=== PATIENT | male | born 1990 | race African-American/Black ===

== ENCOUNTER 2023-03-27 20:37 | Emergency (ER) | payer BC, SELFPAY ==
--- NOTE | ~2023-03-27 | XR_ITS ---
EXAMINATION: XR CHEST CLINICAL INFORMATION: Shortness of breath. COMPARISON: None available. TECHNIQUE: 2 frontal views of the chest were obtained. FINDINGS: No significant abnormality is noted involving the heart, lungs, mediastinum, bony thorax or soft tissues. XR/XR chest 1V IMPRESSION: Unremarkable examination.
[2023-03-27 20:50] VITALS: BP 138/80; PULSE 104; RESP 22; TEMP 36.8; O2SAT 98; BMI 48.8
--- NOTE | 2023-03-27 20:50 | ED.GENADULT ---
HPI - General Adult General Chief complaint: Asthma Stated complaint: asthma, difficulty breathing Time Seen by Provider: 03/27/23 21:02 Source: patient Mode of arrival: ambulatory Limitations: no limitations History of Present Illness HPI narrative: Patient is a 33-year-old male presented to emergency department for evaluation of shortness of breath and wheezing. He reports 2 days with a dry nonproductive cough, progressive worsening of his breathing unrelieved with inhaler at home, wheezing, chest discomfort. Endorses sick contacts in the home. Related Data Previous Rx's Medication Instructions Recorded prednisone 20 mg tablet 40 mg (2 x 20 mg) PO DAILY 5 days 03/28/23 #10 tabs Allergies Allergy/AdvReac Type Severity Reaction Status Date / Time ibuprofen Allergy Unknown Verified 03/27/23 23:38 iodine Allergy Angioedema Verified 03/27/23 23:38 shellfish derived Allergy Anaphylaxis Verified 03/27/23 23:37 Review of Systems Review of Systems: Yes all other systems are reviewed and are negative PMFSH Past Medical History Attestation statement: The following information was validated with the patient. Source: old records reviewed Social History Social History Advance Directives: No Advance Directives Information Provided: No Physical Exam ED Vital Signs: Vital Signs - 24 hr 03/27/23 20:50 03/27/23 21:14 03/27/23 21:45 Temperature 98.3 F Pulse Rate 104 H 98 116 H Pulse Rate [Monitor] Respiratory Rate 22 H 16 14 Blood Pressure 138/80 Pulse Oximetry 98 Oxygen Delivery Method Room Air 03/27/23 22:03 03/27/23 22:12 Temperature Pulse Rate 130 H Pulse Rate [Monitor] 107 H Respiratory Rate 25 H 26 H Blood Pressure 145/82 H Pulse Oximetry 96 Oxygen Delivery Method Room Air BMI result Body Mass Index 48.8 Appearance: Alert.?Oriented to person, place and time. N Eyes: Pupils equal, round and reactive to light.? ENT: Pharynx normal.?? Neck: Normal inspection.? Neck supple. No cervical lymphadenopathy?? CVS: Heart sounds normal. Normal heart rate and rhythm.? Pulses normal.?? Respiratory: Increased work of breathing, use of accessory muscles..? Lung sounds with bilateral inspiratory and expiratory wheezing?? Abdomen: Soft and non-tender. Normoactive bowel sounds. Skin: Skin warm and dry.? Normal skin color.? ? Extremities: No lower extremity edema.? No calf ttp? Neuro: Moves all extremities spontaneously. Sensation intact bilaterally. CN II-XII intact. No focal neuro deficits. Ambulates with normal steady gait. Course Course Course Narrative: This is an RME: Additional HPI, ROS, PE not included below will be deferred to primary provider. This is a [id number]-male, hx of asthma, presenting to the emergency department with a complaint of shortness of breath and wheezing. Reports that he had dry cough starting monday. Very tight, inspiratory and expiratory wheezing heard throughout all lung casarez. Vital signs stable. Brought back to main emergency department for further evaluation and treatment. Plan: ED bronch protocol, RSV/COVID/Flu swabs, Prednisone 60mg PO ordered. Reevaluation(s) Reevaluation #1: Tachycardia with improvement heart rate 120-130, O2 94% R.A., tachypnea. RSV testing is positive. CBC shows no leukocytosis or anemia. CMP is unremarkable. High sensitive troponin nondetectable, EKG revealing a normal sinus rhythm with ventricular rate of 96, normal NM interval, QTC 419, no ST elevation, ST depression, no T-wave inversion, unlikely ACS. Chest x-ray without acute cardiopulmonary findings, no evidence of pneumonia. At this time do not suspect sepsis suspect tachycardia and tachypnea secondary to viral illness, no antibiotics required at this time. D-dimer 257, will obtain CT angio of the chest to exclude pulmonary embolism versus persistent tachycardia due to nebulized albuterol and viral illness with asthma exacerbation. Time: 23:01 Reevaluation #2: Advised patient has iodine allergy, unable to obtain CT angio of the chest for exclusion of pulmonary embolism. Discussed this case with ED attending Dr. Jeffries who recommends Lovenox 1 mg/kg and admission for further work-up to exclude PE.. Room air ambulatory O2 trial with O2 saturation greater than 95% the entire time the increased work of breathing compared to at rest. Pulse at this time has remained less than 110. I discussed with patient admission to medicine service for further evaluation to exclude pulmonary embolism, this would include having VQ scan given elevated dimer, he however declined stating that he cannot stay the night, and like to be discharged home. We discussed risks of untreated pulmonary embolism including and he has verbalized understanding of this. Reports that he will return with any new or worsening symptoms or concerns. Time: 23:45 Medications Administered Discontinued Medications Generic Name Dose Route Start Last Admin Trade Name Zana PRN Reason Stop Dose Admin Albuterol Sulfate 2.5 mg/ 5 mg 03/27/23 21:07 03/27/23 21:14 Albuterol Sulfate 2.5 mg INHALE 03/27/23 21:08 5 mg ONCE ONE Administration Albuterol Sulfate 2.5 mg 03/27/23 21:31 03/27/23 21:44 Albuterol Sulfate (0.083%) 2.5 Mg/3 Ml Vial.Neb INHALE 03/27/23 21:32 2.5 mg ONCE ONE Administration Sodium Chloride 1,000 mls @ 999 mls/hr 03/27/23 23:15 03/27/23 23:34 Ns IV 03/28/23 00:15 999 mls/hr .Q1H1M MERISSA Administration Prednisone 60 mg 03/27/23 20:53 03/27/23 21:09 Prednisone 20 Mg Tablet PO 03/27/23 20:54 60 mg ONCE ONE Administration Medical Decision Making Medical Decision Making [facility] Narrative: 21:00 First contact with patient Patient is a 33-year-old male with past medical history of asthma presenting to emergency department for evaluation of shortness of breath and wheezing notable increased work of breathing upon initial assessment with tachycardia and tachypnea, suspect at this time likely asthma exacerbation versus viral illness, ED bronchodilator protocol was ordered in addition to oral prednisone, plan to obtain serum labs viral testing and chest x-ray to exclude consolidation or infiltrate. Left likely ACS / PE given no risk factors. However, PERC is postive, will obtain d-dimer to exclude PE. Differential Diagnosis Differential Diagnoses: The differential diagnosis associated with the presentation includes (As noted above) Lab Data 03/27/23 21:23 03/27/23 21:23 Labs: Lab Results 03/27/23 Range/Units 21:23 WBC 9.8 (4.8-10.8) X10*3/uL RBC 5.30 (4.60-5.80) X10*6/uL Hgb 14.9 (14.0-18.0) g/dl Hct 45.7 (42.0-52.0) % MCV 86.2 (80.0-98.0) fL MCH 28.1 (27.0-33.0) pg MCHC 32.6 (31.0-36.0) g/dl RDW 13.7 (11.0-16.0) % Plt Count 269 (160-400) X10*3/uL MPV 10.0 (9.4-12.4) fL Immature Gran % (Auto) 0.3 (0.0-0.4) % Neut % (Auto) 64.8 (45-73) % Lymph % (Auto) 19.0 L (20-40) % Will % (Auto) 9.4 (2-11) % Eos % (Auto) 6.2 H (0-4) % Baso % (Auto) 0.3 (0-2) % Lymph # (Auto) 1.9 (1.2-4.9) X10*3/uL Will # (Auto) 0.9 (0.1-1.2) X10*3/uL Eos # (Auto) 0.6 H (0.0-0.4) X10*3/uL Baso # (Auto) 0.0 (0.0-0.2) X10*3/uL Abs Immat Gran (auto) 0.03 (0.00-0.03) X10*3/uL Absolute Neuts (auto) 6.3 (2.0-8.3) x10*3/uL Absolute Nucleated RBC 0.000 (0.0-0.012) X10*3/uL Nucleated RBC % (auto) 0.0 (0.0-0.2) /100WBC PT 12.8 (11.1-13.3) SEC INR 1.1 (0.9-1.1) D-Dimer High Sensitivty 257 NG/ML Sodium 137 (135-145) mmol/L Potassium 4.3 (3.3-5.1) mmol/L Chloride 105 (96-108) mmol/L Carbon Dioxide 23 (22-29) mmol/L Anion Gap 13 (12-20) BUN 13 (9-16) mg/dL Creatinine 0.85 (0.5-1.4) mg/dL Estim Creat Clear Calc 179.0 Estimated GFR > 60 Random Glucose 110 (60-115) mg/dL Calcium 9.1 (8.4-10.2) mg/dL Magnesium 2.1 (1.6-2.6) mg/dL Total Bilirubin 0.6 (0.0-1.0) mg/dL AST 32 (5-37) U/L ALT 43 H (0-40) U/L Alkaline Phosphatase 79 (39-117) U/L Troponin I High Sens < 2.7 (<3.5-35.0) ng/L Total Protein 7.2 (6.5-8.0) g/dL Albumin 4.1 (3.5-5.0) g/dL Influenza Type A (PCR) NEGATIVE (Negative) Influenza Type B (PCR) NEGATIVE (Negative) RSV RNA Qual (PCR) POSITIVE A (Negative) SARS-CoV-2 RNA (RT-PCR) NEGATIVE (Negative) Discharge Plan Discharge Clinical Impression: Asthma with acute exacerbation, Respiratory syncytial virus (RSV), Left against medical advice Patient Disposition: Left Against Medical Advice Instructions: Asthma (ED), Against Medical Advice (ED) Additional Instructions: As discussed, it was recommended that you remain in the emergency department for further evaluation/hospital admission to rule out a pulmonary embolism/blood clot in your lungs. This is because your D-Dimer lab was elevated, your heart rate has been elevated, in your breathing rate was also elevated. You however declined hospital admission tonight and are leaving against medical advice. Today you have tested positive for RSV, a common respiratory viruses. This is very contagious. Please be sure to get plenty of rest, drink fluids, take your albuterol inhaler as prescribed in addition to prednisone. Please contact your primary care provider to arrange for further follow-up. You may return back to the emergency department any new or worsening symptoms or concerns. Prescriptions: New prednisone 20 mg tablet 40 mg PO DAILY 5 Days Qty: 10 0RF Referrals: Physician,Unknown J [Primary Care Provider] - Stand Alone Forms: Against Medical Advice
--- NOTE | 2023-03-27 21:03 | ECG_ITS ---
Test Reason : SOB Blood Pressure : / mmHG Vent. Rate : 096 BPM Atrial Rate : 096 BPM P-R Int : 144 ms QRS Dur : 084 ms QT Int : 332 ms P-R-T Axes : 038 065 042 degrees QTc Int : 419 ms Normal sinus rhythm Normal ECG No previous ECGs available Referred By: Diana Hernandez Electronically Signed By:LILLI BILL
[2023-03-27] MEDS: predniSONE 20 MG TABLET 60 MG PO (21:09)
[2023-03-27 21:14] VITALS: PULSE 98; RESP 16; O2SAT 99
[2023-03-27] MEDS: Albuterol Sulfate 2.5 MG, Albuterol Sulfate (0.083%) 2.5 MG 5 MG INHALE (21:14)
[2023-03-27 21:28] LABS: MANUAL DIFF FLAG NO
[2023-03-27 21:29] LABS: Basophils Percent Auto 0.3 % (0-2); Eosinophils Absolute Auto 0.6 X10*3/uL (0.0-0.4); Eosinophils Percent Auto 6.2 % (0-4); Hematocrit 45.7 % (42.0-52.0); Hemoglobin 14.9 g/dl (14.0-18.0); Imm Gran Abs Auto 0.03 X10*3/uL (0.00-0.03); Imm Gran Pct Auto 0.3 % (0.0-0.4); Lymphocytes Absolute Auto 1.9 X10*3/uL (1.2-4.9); Mean Corpuscular HGB Conc 32.6 g/dl (31.0-36.0); Mean Corpuscular Hemoglobin 28.1 pg (27.0-33.0); Mean Corpuscular Volume 86.2 fL (80.0-98.0); Monocytes Absolute Auto 0.9 X10*3/uL (0.1-1.2); Monocytes Percent Auto 9.4 % (2-11); Neutrophils Absolute Auto 6.3 x10*3/uL (2.0-8.3); Neutrophils Percent Auto 64.8 % (45-73); Platelet Count 269 X10*3/uL (160-400); Red Cell Distribution Width 13.7 % (11.0-16.0); White Blood Count 9.8 X10*3/uL (4.8-10.8)
--- NOTE | 2023-03-27 21:35 | MHC.EDTECH ---
This Tech assumed care of this pt upon arrival. PT changed into hospital gown and placed on traffic monitor specialist. EKG handed to provider lab work sent for processing
[2023-03-27 21:38] LABS: INTERNATIONAL NORM RATIO 1.1 (0.9-1.1); Prothrombin Time 12.8 SEC (11.1-13.3)
[2023-03-27] MEDS: Albuterol Sulfate (0.083%) 2.5 MG/3 ML VIAL.NEB INHALE (21:44)
[2023-03-27 21:45] VITALS: PULSE 116; RESP 14; O2SAT 99
[2023-03-27 21:48] LABS: Alanine Aminotransferase 43 U/L (0-40); Albumin Level 4.1 g/dL (3.5-5.0); Alkaline Phosphatase 79 U/L (39-117); Anion Gap 13 (12-20); Aspartate Amino Transferase 32 U/L (5-37); Bilirubin Total 0.6 mg/dL (0.0-1.0); Blood Urea Nitrogen 13 mg/dL (9-16); Calcium 9.1 mg/dL (8.4-10.2); Carbon Dioxide 23 mmol/L (22-29); Chloride 105 mmol/L (96-108); Estimated Glomerular Filt Rate > 60; Glucose Random 110 mg/dL (60-115); Magnesium 2.1 mg/dL (1.6-2.6); Potassium 4.3 mmol/L (3.3-5.1); Sodium 137 mmol/L (135-145); Total Protein 7.2 g/dL (6.5-8.0)
[2023-03-27 22:03] VITALS: PULSE 107; RESP 25
[2023-03-27 22:08] LABS: Influenza A PCR NEGATIVE (Negative); Influenza B PCR NEGATIVE (Negative); Resp Syncy Virus RNA Qual PCR POSITIVE (Negative); SARS COV2 PCR INHOUSE NEGATIVE (Negative)
[2023-03-27 22:09] LABS: Troponin-I High Sensitivity < 2.7 ng/L (<3.5-35.0)
[2023-03-27 22:12] VITALS: BP 145/82; PULSE 130; RESP 26; O2SAT 96
[2023-03-27 22:15] LABS: D Dimer High Sensitivity 257 NG/ML
[2023-03-27] MEDS: 0.9 % Sodium Chloride 1,000 ML 999 ML IV (23:34)
--- NOTE | 2023-03-28 00:12 | PC.NURSE ---
message house carpenter with request to retrieve medication due to it not being in pyxsis
--- NOTE | 2023-03-28 00:23 | MHC.EDTECH ---
PT ambulated per PA request. Pt O2 Sat was 97%- 95% room air
== END 2023-03-28 00:58 | disposition left against medical advice (07) ==
PROVIDERS: Nurse Practitioner Family; Physician Assistant Medical; Emergency Provider Emergency Medicine
DX: J45.901 Unspecified asthma with (acute) exacerbation (principal); J22 Unspecified acute lower respiratory infection; R06.02 Shortness of breath; Z79.899 Other long term (current) drug therapy; Z20.822 Contact with and (suspected) exposure to COVID-19; Z20.828 Contact with and (suspected) exposure to other viral communicable diseases
CPT/HCPCS: 0241U; 36415; 71045; 80053; 83735; 84484; 85025; 85379; 85610; 93005; 94640; 96360; 99284; 99285

== ENCOUNTER 2023-03-28 08:36 | Emergency (ER) | payer BC, SELFPAY ==
--- NOTE | ~2023-03-28 | NM_ITS ---
EXAMINATION: PULMONARY PERFUSION STUDY CLINICAL INFORMATION: Tachycardia and dyspnea, elevated d-dimer. Patient is RSV positive. COMPARISON: No previous lung scan is available for comparison. Radiograph of the chest dated 03/27/2023 is available for comparison. TECHNIQUE: Following the intravenous administration of 4.0 mCi Tc-99m MAA an 8-view perfusion study was performed using a dual detector gamma scintillation camera. No ventilation images were obtained. FINDINGS: Perfusion images: No segmental perfusion defects are present. There is a small subsegmental wedge-shaped perfusion defect in the posterior segment of the left upper lobe and a very small barely perceptible subsegmental perfusion defect is present in the anterior segment of the right upper lobe, well visualized only on the RPO view. No additional perfusion defects are visualized. The activity is otherwise homogeneous throughout the other lung casarez. NM/NM pul perfusion IMPRESSION: Very low probability of pulmonary embolism.
[2023-03-28 08:44] VITALS: BP 139/95; PULSE 103; RESP 18; TEMP 36.6; O2SAT 97; BMI 49.5
[2023-03-28 08:57] VITALS: BP 139/85; PULSE 114; RESP 18; O2SAT 96
--- NOTE | 2023-03-28 09:09 | ED_ITS ---
HPI - SOB/Dyspnea General Chief Complaint: Dyspnea Stated Complaint: Diff breathing left AMA last night Time Seen by Provider: 03/28/23 08:52 Source: patient and old records reviewed Mode of arrival: ambulatory Limitations: no limitations History of Present Illness HPI Narrative: 33 yo male with PMH of asthma just seen here yesterday for chest tightness, asthma and URI symptoms with sick contacts at home he was diagnosed with RSV+ - CXR was negative, RSV+PCR, he was tachycardic so ddimer sent off only 257 without risk factors for VTE has allergy to iodine so CTA was not done he was given lovenox injection and left AMA due to work issues. He comes back for further VTE testing he has no hx of clots. He has no chest pain now and after treatment in the ED he looks well and is feeling better, HR remains slightly elevated. EKG yesterday 96 MD elicited complaint: shortness of breath and cough Pertinent past history: asthma Onset (ago): day(s) (3) Context: recent illness Timing: improved Severity: mild Exacerbating factors: coughing Relieving factors: rest, bronchodilators and medication Known history of: asthma Associated symptoms: cough and wheezing Treatment prior to arrival: other (treatments in ED, prednisone, was given a dose of lovenox prior to DC) Related Data Previous Rx's Medication Instructions Recorded prednisone 20 mg tablet 40 mg (2 x 20 mg) PO DAILY 5 days 03/28/23 #10 tabs Allergies Allergy/AdvReac Type Severity Reaction Status Date / Time ibuprofen Allergy Unknown Verified 03/28/23 08:44 iodine Allergy Angioedema Verified 03/28/23 08:44 shellfish derived Allergy Anaphylaxis Verified 03/28/23 08:44 Review of Systems Review of Systems: Constitutional : No Fever, No Chills ENT/Mouth : No Hoarseness, No sore throat, No Rhinorrhea Eyes: No Redness, No Discharge, No Vision Changes Cardiovascular : No Chest Pain, positive SOB, positive Dyspnea on Exertion, No Edema Respiratory : positive Cough, No Sputum, positive Wheezing, Gastrointestinal : No Nausea, No Vomiting, No Diarrhea, No abdominal Pain Genitourinary : No Dysuria, No Hematuria Musculoskeletal : No joint pain, No Myalgias Skin : No rash Neuro : No Weakness, No Numbness, No Headache Psych : No anxiety, depression Heme/Lymph: No Bruising, No Bleeding Endocrine : No Polyuria, No Polydipsia All other systems reviewed and are negative [facility] Past Medical History Attestation statement: The following information was validated with the patient. Medical History Asthma with acute exacerbation Social History Social History Patient Tobacco Use Status: Never used Tobacco Smoked in Last 30 Days: No Use of substances other than those prescribed or required for medical reasons: Yes Substance Use Type: Marijuana Advance Directives: No Advance Directives Information Provided: Yes Physical Exam Vital Signs: Vital Signs: Last Vital Signs Temp 98.8 F 03/28/23 11:41 Pulse 105 H 03/28/23 11:41 Resp 18 03/28/23 11:41 BP 118/68 03/28/23 11:41 Pulse Ox 96 03/28/23 11:41 O2 Del Method Room Air 03/28/23 11:41 BMI result Body Mass Index 49.5 Appearance: Alert. Oriented X3. No acute distress. Eyes: Pupils equal, round and reactive to light. ENT: Pharynx normal. Neck: Normal inspection. Neck supple. CVS: Normal heart rate and rhythm. Pulses normal. Respiratory: No respiratory distress. Breath sounds diminished no wheezes not in distress. Abdomen: Soft and non-tender. Skin: Skin warm and dry. Normal skin color. Normal skin turgor. Extremities: No lower extremity edema. Neuro: Oriented X 3. No motor deficit. No sensory deficit. Medications Administered Discontinued Medications Generic Name Dose Route Start Last Admin Trade Name Freq PRN Reason Stop Dose Admin Benzonatate 100 mg 03/28/23 09:28 03/28/23 09:33 Benzonatate 100 Mg Capsule PO 03/28/23 09:29 100 mg ONCE ONE Administration Medical Decision Making Medical Decision Making MDM Narrative: 33 yo male with persistent tachycardia during visit yesterday had mildly elevated ddimer but has RSV and asthma from resp standpoint he is doing great and looks well no hypoxia. Mild elevation in HR but no signs of DVT, no hypoxia, no chest pain now at this time will obtain VQ scan and if negative will DC home and continue treatment with prednisone. Differential Diagnosis Differential Diagnoses: The differential diagnosis associated with the presentation includes viral RSV infection, asthma, anxiety just had normal labs and EKG yesterday Admission/Observation Consideration of admission/observation: Escalation of care including admission/observation considered no resp distress can be managed as outpatient Lab Data MDM Lab Attestation statement: I reviewed the patient's lab results. Independent Interpretation I performed an independent interpretation of an: EKG (EKG was 96 NSR yesterday ) and Plain X-Ray (normal yesterday) Interpretation: VQ scan today: no PE Radiology Impression Discussion of test interpretation with radiology: I have reviewed the radiologist's reading. Radiologist Impression: VQ low prob with no hypoxia and no chest pain - ddimer only 257 External Record Review External record reviewed: Inpatient record Discharge Plan Discharge Clinical Impression: Respiratory syncytial virus (RSV) Patient Disposition: Home, Self-Care Instructions: Respiratory Syncytial Virus (ED) Additional Instructions: no signs of blood clot , continue prednisone and inhalers. you should not be around people this is contagious would stay out of work for the next 3 days. return for increased work of breathing, no improvement with treatments, pain or any other concerns. Prescriptions: No Action prednisone 20 mg tablet 40 mg PO DAILY 5 Days Qty: 10 0RF Stand Alone Forms: Work/School Release
[2023-03-28 09:14] VITALS: PULSE 105; RESP 20; O2SAT 95
[2023-03-28] MEDS: Benzonatate 100 MG CAPSULE PO (09:33)
--- NOTE | 2023-03-28 10:35 | PC.NURSE ---
Pt off unit to nuclear medicine for VQ scan
[2023-03-28 11:41] VITALS: BP 118/68; PULSE 105; RESP 18; TEMP 37.1; O2SAT 96
--- NOTE | 2023-03-28 12:01 | PC.NURSE ---
Assumed care for pt, was at [facility], returned approx 1145, pt VSS, reports no pain.
== END 2023-03-28 12:42 | disposition home or self-care (01) ==
PROVIDERS: Emergency Provider Emergency Medicine
DX: R05.9 Cough, unspecified (principal); B97.4 Respiratory syncytial virus as the cause of diseases classified elsewhere; R00.0 Tachycardia, unspecified; R06.02 Shortness of breath; F12.90 Cannabis use, unspecified, uncomplicated
CPT/HCPCS: 78580; 99284; A9540

== ENCOUNTER 2023-07-31 08:14 | Emergency (ER) | payer BC, SELFPAY ==
--- NOTE | ~2023-07-31 | XR_ITS ---
EXAMINATION: XR RIBS, RIGHT CLINICAL INFORMATION: Right rib pain status post fall COMPARISON: None available. TECHNIQUE: 5 views of the right ribs were obtained. FINDINGS: Bilateral low lung volumes. Slight bibasilar atelectasis. No pneumothorax. Trachea is midline. Cardiac mediastinal silhouette is not enlarged. No large pleural effusion. Soft tissues are unremarkable. Osseous structures are intact. No acute visualized right-sided rib fractures. XR/XR ribs RT min 3V w CXR1V IMPRESSION: 1. Bilateral low lung volumes. 2. Slight bibasilar atelectasis. 3. No acute visualized right-sided rib fractures.
[2023-07-31 08:17] VITALS: BP 126/81; PULSE 97; RESP 20; TEMP 35.7; O2SAT 99; BMI 49.3
--- NOTE | 2023-07-31 08:24 | ED_ITS ---
HPI - General Adult General Chief complaint: General Medical Stated complaint: pulled a muscle? Time Seen by Provider: 07/31/23 08:24 Source: patient and family Mode of arrival: ambulatory Limitations: no limitations History of Present Illness HPI narrative: 33-year-old male came in for evaluation of right-sided chest pain after having a coughing fit last night. Patient was history of known asthma cough just moved to the area has no PCP yet, been having chronic cough due to asthma last night around 18:00 patient had a coughing fit felt a pop on the right side of the chest, pain has been constant since yesterday more with movement and taking a deep breath. pain is localized to the right chest wall with no radiation has been constant since yesterday worsening with movement and taking a deep breath. Patient has strong family history of IA, unknown family history of PE patient declined lower extremity swelling or tenderness, or recent travel. Related Data Previous Rx's Medication Instructions Recorded prednisone 20 mg tablet 40 mg (2 x 20 mg) PO DAILY 5 days 03/28/23 #10 tabs albuterol sulfate 2.5 mg/3 mL 2.5 mg (3 mL) inhalation QID PRN 07/31/23 (0.083 %) solution for nebulization shortness of breath or wheezing #75 mL albuterol sulfate 90 mcg/actuation 2 puff inhalation Q6H PRN 07/31/23 aerosol inhaler shortness of breath or wheezing #8.5 grams prednisone 20 mg tablet 20 mg PO BID #10 tabs 07/31/23 Allergies Allergy/AdvReac Type Severity Reaction Status Date / Time ibuprofen Allergy Unknown Verified 07/31/23 08:20 iodine Allergy Angioedema Verified 07/31/23 08:20 shellfish derived Allergy Anaphylaxis Verified 07/31/23 08:20 Review of Systems Review of Systems: All other systems are reviewed and are negative Constitutional: Reports as per HPI and Reports no additional constitutional complaints Eyes: Reports as per HPI and Reports no additional eye complaints Reports system reviewed and no additional complaints, except as documented Cardiovascular: Reports as per HPI and Reports no additional cardiovascular complaints Respiratory: Reports as per HPI and Reports no additional respiratory complaints Gastrointestinal: Reports as per HPI and Reports no additional gastrointestinal complaints Genitourinary: Reports no additional female genitourinary complaints Musculoskeletal: Reports no additional musculoskeletal complaints Skin/Breast: Reports system reviewed and no additional complaints, except as docu Psychiatric: Reports no additional psychiatric complaints Endocrine: Reports no additional endocrine complaints Hematologic/Lymphatic: Reports no additional hematologic/lymphatic complaints Allergic/Immunologic: Reports no additional allergic/immunologic complaints Reports system reviewed and no additional complaints, except as documented and Reports Abnormal speech present [facility] Past Medical History Medical History Asthma with acute exacerbation Social History Social History Patient Tobacco Use Status: Never used Tobacco Smoked in Last 30 Days: No Use of substances other than those prescribed or required for medical reasons: Yes Substance Use Type: Marijuana Advance Directives: No Physical Exam ED Vital Signs: Vital Signs - 24 hr 07/31/23 08:17 07/31/23 09:08 07/31/23 09:52 Temperature 96.3 F L Pulse Rate 97 88 Respiratory Rate 20 18 18 Blood Pressure 126/81 Pulse Oximetry 99 Oxygen Delivery Method Room Air BMI result Body Mass Index 49.3 Vital signs have been reviewed and appear to be correct. Blood pressure elevated. Heart rate normal. Respiratory rate normal. Temperature normal. Oxygen saturation normal. Appearance: Alert. Oriented X3. No acute distress. Head: Normal external exam. Normocephalic. Atraumatic. No Griffin signs noted. No raccoon eyes noted Eyes: PERRLA. EOMI. Conjunctiva and sclera normal. Eyelids normal. ENT: TM's Normal. Pharynx normal. Uvula midline. Moist mucous membranes. No trismus noted. No drooling noted. No muffled voice noted. Neck: Normal inspection. Neck supple. FROM. No adenopathy. Thyroid Normal. No meningeal signs. No neck mass noted. CVS: Normal heart rate and rhythm. Heart sound normal. No murmurs noted. Pulses normal throughout. Respiratory: No respiratory distress. Painless inspiration. Breath sounds normal. No wheezes/rales/rhonchi noted. right chest wall tenderness, no step- off, no deformity. No accessory muscle usage noted or decreased air movement noted. Abdomen: Soft and nontender. Bowel sounds normal in all 4 quadrants. No distention noted. No organomegaly noted. No visible injury noted. Back: No CVA tenderness. Full range of motion noted. Skin: Skin warm and dry. Normal skin color. Normal skin turgor. No rashes/lesions/lacerations noted. Extremities: No lower extremity edema. Extremities exhibit normal range of motion. Extremities nontender. Neuro: Oriented X 3. Cranial nerve exam: II-XII are grossly intact No motor deficit. No sensory deficit. Reflexes normal. Course Reevaluation(s) Reevaluation #1: Right-sided chest pain started after coughing fit pain is best characterized and consistent with a pulled muscle, chest x-ray showing no rib fracture, patient at low risk for heart disease with HEART score of 0 and low Wells criteria with negative D-dimer. Feels better after was given oxycodone patient was instructed to take Tylenol and start deep breathing exercises to avoid lung atelectasis. Time: 10:12 Medications Administered Discontinued Medications Generic Name Dose Route Start Last Admin Trade Name Freq PRN Reason Stop Dose Admin Albuterol/Ipratropium 3 ml 07/31/23 09:03 07/31/23 09:06 Albuterol/Iprat 2.5/0.5mg 3 Ml Ampul.Neb INHALE 07/31/23 09:04 3 ml ONCE ONE Administration Oxycodone HCl 5 mg 07/31/23 09:38 07/31/23 09:49 Oxycodone Hcl Immed Release 5 Mg Tablet PO 07/31/23 09:39 5 mg ONCE ONE Administration Medical Decision Making Differential Diagnosis Differential Diagnoses: The differential diagnosis associated with the presentation includes ( Rib fracture, pneumonia, pleural effusion, pneumothorax, PE, ACS, myofascial chest pain) Admission/Observation Consideration of admission/observation: Escalation of care including admission/observation considered Lab Data MDM Lab Attestation statement: I reviewed the patient's lab results. Labs: Lab Results 07/31/23 Range/Units 09:40 D-Dimer High Sensitivty < 150 NG/ML Troponin I High Sens < 2.7 (<3.5-35.0) ng/L Independent Interpretation I performed an independent interpretation of an: EKG ( normal sinus rhythm at 87 beats per minute, normal intervals, normal axis deviation, no ST-T changes.) and Plain X-Ray ( chest:1. Bilateral low lung volumes. 2. Slight bibasilar atelectasis. 3. No acute visualized right-sided rib fractures. ) Radiology Impression Discussion of test interpretation with radiology: I have reviewed the radiologist's reading. Scores Heart Score History: -0- slightly suspicious ECG: -0- normal Age: -0- < or = 45 Risk factory: -1- 1 or 2 risk factors Troponin: -0- < or = normal limit Score: 1 Risk: 1.7% Wells DVT Alternative Dx as likely as or more likely than DVT: -2 Score: -2 2-tier Risk: unlikely risk (5%) 3-tier Risk: low risk (3%) Discharge Plan Discharge Clinical Impression: Chest wall muscle strain Patient Disposition: Home, Self-Care Instructions: Muscle Strain (ED) Prescriptions: New albuterol sulfate 90 mcg/actuation HFA aerosol inhaler 2 puff inhalation Q6H PRN (Reason: shortness of breath or wheezing) Qty: 8.5 0RF albuterol sulfate 2.5 mg /3 mL (0.083 %) solution for nebulization 2.5 mg inhalation QID PRN (Reason: shortness of breath or wheezing) Qty: 75 0RF prednisone 20 mg tablet 20 mg PO BID Qty: 10 0RF No Action prednisone 20 mg tablet 40 mg PO DAILY 5 Days Qty: 10 0RF
--- NOTE | 2023-07-31 08:25 | ECG_ITS ---
Test Reason : dyspnea Blood Pressure : / mmHG Vent. Rate : 087 BPM Atrial Rate : 087 BPM P-R Int : 128 ms QRS Dur : 086 ms QT Int : 346 ms P-R-T Axes : 026 051 024 degrees QTc Int : 416 ms Normal sinus rhythm with sinus arrhythmia Normal ECG When compared with ECG of 27-MAR-2023 21:02, No significant change was found Referred By: Diego Mendieta Electronically Signed By:BARB MCMILLAN
[2023-07-31] MEDS: Albuterol/Iprat 2.5/0.5MG 3 ML AMPUL.NEB INHALE (09:06)
[2023-07-31 09:08] VITALS: PULSE 88; RESP 18; O2SAT 97
[2023-07-31] MEDS: oxyCODONE HCl Immed Release 5 MG TABLET PO (09:49)
[2023-07-31 09:52] VITALS: RESP 18
[2023-07-31 09:59] LABS: D Dimer High Sensitivity < 150 NG/ML
[2023-07-31 10:04] LABS: Troponin-I High Sensitivity < 2.7 ng/L (<3.5-35.0)
== END 2023-07-31 10:48 | disposition home or self-care (01) ==
PROVIDERS: Emergency Provider Emergency Medicine
DX: R07.89 Other chest pain (principal); R05.9 Cough, unspecified; R07.81 Pleurodynia; Z79.899 Other long term (current) drug therapy
CPT/HCPCS: 36415; 71101; 84484; 85379; 93005; 94640; 99284

== ENCOUNTER → 2023-07-31 08:25 | Outpatient (BNV) | payer BC, SELFPAY | PROVIDERS: Emergency Provider Emergency Medicine; Visit Provider Internal Medicine | DX: R06.09 Other forms of dyspnea (principal) | CPT/HCPCS: 93010 ==

== ENCOUNTER → 2023-11-28 08:58 | Outpatient (BNVA) | payer BC, SELFPAY | PROVIDERS: Visit Provider Physician Assistant Surgical ==